=== PATIENT | female | born 1950 | race Asian ===

== ENCOUNTER 2018-07-02 18:36 | Inpatient (IN) | payer OTHER ==
[~2018-07-02] VITALS: Ht 154.9 cm; Wt 50.5 kg
[2018-07-02 19:15] LABS: BASOPHILS # (AUTO) 0.02 x10^3/uL (0-0.1); BASOPHILS % (AUTO) 0 % (0-1); EOSINOPHILS % (AUTO) 1 % (1-7); LYMPHOCYTES # (AUTO) 2.28 x10^3/uL (1-3.4); LYMPHOCYTES % (AUTO) 30 % (22-44); MD NO; MEAN CORPUSCULAR HEMOGLOBIN 28.6 pg (27.0-34.8); MEAN CORPUSCULAR HGB CONC 34.1 g/dL (32.4-35.8); MEAN CORPUSCULAR VOLUME 83.8 fL (80-100); MEAN PLATELET VOLUME 6.8 fL (7.4-10.4); MONOCYTES % (AUTO) 7 % (2-9); NEUTROPHILS % (AUTO) 62 % (42-75); PLATELET COUNT 446 x10^3/uL (130-400); RED CELL DISTRIBUTION WIDTH 14.2 % (9.6-15.2)
[2018-07-02 19:27] LABS: ALANINE AMINOTRANSFERASE 34 U/L (12-78); ALBUMIN 4.6 g/dL (3.4-5.0); ANION GAP 9 mmol/L (5-15); CALCIUM 9.7 mg/dL (8.5-10.1); CHLORIDE 102 mmol/L (98-107)
[2018-07-02 19:29] LABS: ALKALINE PHOSPHATASE 101 U/L (45-117); BILIRUBIN,TOTAL 0.5 mg/dL (0.2-1.0); TOTAL PROTEIN 9.1 g/dL (6.4-8.2)
[2018-07-02] MEDS ORDERED: ACETAMINOPHEN 325 MG TABLET ONE (19:43)
[2018-07-02 19:56] LABS: ACETONE, SERUM Negative (Negative)
[2018-07-02] MEDS ORDERED: ACETAMINOPHEN 325 MG TABLET PO ONE (20:00)
[2018-07-02 20:02] LABS: THYROID STIMULATING HORMONE 2.48 mIU/L (0.358-3.740)
[2018-07-02 20:07] LABS: HEMOGLOBIN A1C 8.2 % (4.2-6.3)
[2018-07-02] MEDS ORDERED: SODIUM CHLORIDE FLUSH 10ML SYR IVF ONE (20:30)
[2018-07-02] MEDS ORDERED: hydrALAzine 20 MG/ML, 1ML IV ONE (20:30)
[2018-07-02] MEDS ORDERED: hydrALAzine 20 MG/ML, 1ML ONE (20:34)
[2018-07-02 20:39] LABS: CULTURE INDICATED? NO; MICROSCOPIC NOT IND
[2018-07-02] MEDS ORDERED: METOPROLOL 1 MG/ML, 5ML ONE (21:07)
[2018-07-02] MEDS ORDERED: METOPROLOL 1 MG/ML, 5ML IVPush PRN (21:30)
[2018-07-02 21:57] LABS: TROPONIN I 0.018 ng/mL (0.000-0.045)
[2018-07-02] MEDS ORDERED: SODIUM CHLORIDE FLUSH 10ML SYR IVF PRN (22:30)
[2018-07-02] MEDS ORDERED: SODIUM CHLORIDE 0.9% 1,000 ML IV SCH (23:26)
[2018-07-02] MEDS ORDERED: morphine SULFATE 10 MG/ML, 1ML IVPush PRN (23:30)
[2018-07-02] MEDS ORDERED: ENALAPRILAT 1.25 MG/ML, 2ML IVPush PRN (23:30)
[2018-07-02] MEDS ORDERED: BISACODYL 10 MG SUPP PR PRN (23:30)
[2018-07-02] MEDS ORDERED: NITROGLYCERIN 0.4 MG BOTTLE (25 TABS) SL PRN (23:30)
[2018-07-02] MEDS ORDERED: ONDANSETRON ODT 4 MG PO PRN (23:30)
[2018-07-02] MEDS ORDERED: DOCUSATE 100 MG CAPSULE PO PRN (23:30)
[2018-07-02] MEDS ORDERED: hydrALAzine 20 MG/ML, 1ML IVPush PRN (23:30)
[2018-07-02] MEDS ORDERED: PROMETHAZINE 25 MG/ML, 1ML IM PRN (23:30)
[2018-07-02] MEDS ORDERED: POLYETHYLENE GLYCOL 17 GM PACKET PO PRN (23:30)
[2018-07-02] MEDS ORDERED: ONDANSETRON 2MG/ML, 2ML IVPush PRN (23:30)
[2018-07-02 23:43] VITALS: BP 195/90
[2018-07-02 23:44] VITALS: BP 200/93
[2018-07-03] VITALS (9 sets, daily range): BP systolic 119–186; BP diastolic 66–86
[2018-07-03] MEDS: PANTOPRAZOLE 40 MG IV IVPush SCH ×2 (00:02→15:23)
[2018-07-03] MEDS: LISINOPRIL 10 MG TABLET PO SCH ×2 (00:02→08:25)
[2018-07-03] MEDS: HEPARIN 5,000 UNITS/ML, 1ML SQ SCH ×4 (00:02→23:30)
[2018-07-03] MEDS: INSULIN LISPRO 100 UNITS/ML, PEN SQ-INSULIN SCH ×5 (00:22→21:16)
[2018-07-03] MEDS ORDERED: LORazepam 0.5MG TABLET PO ONE (00:30)
[2018-07-03] MEDS: hydrALAzine 20 MG/ML, 1ML IVPush PRN (01:41)
[2018-07-03] MEDS: ACETAMINOPHEN 325 MG TABLET PO PRN ×2 (01:41→18:05)
[2018-07-03 02:06] LABS: FREE T4 (FREE THYROXINE) 1.03 ng/dL (0.76-1.46); THYROID STIMULATING HORMONE 2.42 mIU/L (0.358-3.740)
[2018-07-03] MEDS ORDERED: MAALOX/HYOSCYAMINE/LIDOCAINE 45 ML BTL PO ONE (02:30)
[2018-07-03] MEDS ORDERED: LABETALOL 5MG/ML, 20ML IVPush PRN (02:30)
[2018-07-03 02:58] LABS: BASOPHILS # (AUTO) 0.04 x10^3/uL (0-0.1); BASOPHILS % (AUTO) 0 % (0-1); EOSINOPHILS # (AUTO) 0.07 x10^3/uL (0-0.4); EOSINOPHILS % (AUTO) 1 % (1-7); LYMPHOCYTES # (AUTO) 3.52 x10^3/uL (1-3.4); LYMPHOCYTES % (AUTO) 30 % (22-44); MD NO; MEAN CORPUSCULAR HEMOGLOBIN 28.1 pg (27.0-34.8); MEAN CORPUSCULAR HGB CONC 33.4 g/dL (32.4-35.8); MEAN PLATELET VOLUME 6.6 fL (7.4-10.4); MONOCYTES # (AUTO) 0.89 x10^3/uL (0.2-0.8); MONOCYTES % (AUTO) 8 % (2-9); NEUTROPHILS # (AUTO) 7.27 x10^3/uL (1.8-6.8); NEUTROPHILS % (AUTO) 62 % (42-75); PLATELET COUNT 479 x10^3/uL (130-400); RED BLOOD COUNT 5.26 x10^6/uL (3.82-5.3); RED CELL DISTRIBUTION WIDTH 14.1 % (9.6-15.2)
[2018-07-03 03:10] LABS: ALBUMIN 4.2 g/dL (3.4-5.0); ANION GAP 11 mmol/L (5-15); CALCIUM 9.9 mg/dL (8.5-10.1); CHLORIDE 104 mmol/L (98-107)
[2018-07-03 03:16] LABS: ALANINE AMINOTRANSFERASE 32 U/L (12-78); ALKALINE PHOSPHATASE 95 U/L (45-117); CHOL/HDL RATIO 6.2; CHOLESTEROL, TOTAL 331 mg/dL (140-239); CREATININE 0.94 mg/dL (0.55-1.02); HDL CHOL % 16 % (28-40); HDL CHOLESTEROL (DIRECT) 53 mg/dL (40-60); TOTAL PROTEIN 8.5 g/dL (6.4-8.2); TRIGLYCERIDES 492 mg/dL (50-200); TROPONIN I 0.092 ng/mL (0.000-0.045)
[2018-07-03 03:17] LABS: BILIRUBIN,TOTAL 0.5 mg/dL (0.2-1.0)
[2018-07-03] MEDS: ASPIRIN 81 MG TABLET EC PO SCH (05:52)
[2018-07-03] MEDS ORDERED: SODIUM CHLORIDE 0.9% 1,000 ML IV ONE ×2 (10:08→10:15)
[2018-07-03] MEDS ORDERED: BUTALB/APAP/CAFFEINE 50MG/325MG/40MG PO ONE ×2 (10:30)
[2018-07-03] MEDS: METOPROLOL SUCCINATE 25 MG TAB.ER.24H PO SCH (10:32)
[2018-07-03] MEDS ORDERED: MIDAZOLAM 1 MG/ML, 5ML ONE (13:04)
[2018-07-03] MEDS ORDERED: FENTANYL PF 100 MCG/2ML ONE (13:04)
[2018-07-03] MEDS ORDERED: BIVALIRUDIN 250 MG ONE (13:05)
[2018-07-03] MEDS ORDERED: LIDOCAINE-MPF 1%, 5ML ONE (13:05)
[2018-07-03] MEDS ORDERED: VERAPAMIL 2.5 MG/ML, 2ML ONE (13:05)
[2018-07-03] MEDS ORDERED: HEPARIN 1,000 UNITS/ML, 10ML ONE (13:05)
[2018-07-03] MEDS ORDERED: NITROGLYCERIN 5 MG/ML, 10ML ONE (13:05)
[2018-07-03] MEDS ORDERED: TICAGRELOR 90 MG TABLET ONE (14:18)
[2018-07-03] MEDS: SODIUM CHLORIDE 0.9% 1,000 ML IV SCH ×2 (14:19→22:11)
[2018-07-03] MEDS ORDERED: BIVALIRUDIN 250 MG in DEXTROSE 5% 100 ML IV SCH (14:19)
[2018-07-03] MEDS ORDERED: ASPIRIN 325 MG TABLET EC ONE (14:22)
[2018-07-03] MEDS ORDERED: LABETALOL 5MG/ML, 20ML ONE (14:22)
[2018-07-03] MEDS ORDERED: NITROGLYCERIN 0.4 MG BOTTLE (25 TABS) SL ONE (14:30)
[2018-07-03] MEDS ORDERED: ONDANSETRON 2MG/ML, 2ML IVPush PRN (16:00)
[2018-07-03] MEDS: ATORVASTATIN 40 MG TABLET PO SCH (21:16)
[2018-07-03] MEDS: TICAGRELOR 90 MG TABLET PO SCH (21:16)
[2018-07-04] VITALS (11 sets, daily range): BP systolic 128–217; BP diastolic 62–89
[2018-07-04] MEDS: PANTOPRAZOLE 40 MG IV IVPush SCH ×2 (03:59→16:04)
[2018-07-04 04:52] LABS: ANION GAP 8 mmol/L (5-15); CALCIUM 8.6 mg/dL (8.5-10.1); CHLORIDE 108 mmol/L (98-107)
[2018-07-04] MEDS: SODIUM CHLORIDE 0.9% 1,000 ML IV SCH (06:19)
[2018-07-04] MEDS: METOPROLOL SUCCINATE 25 MG TAB.ER.24H PO SCH (06:40)
[2018-07-04] MEDS: ASPIRIN 81 MG TABLET EC PO SCH ×2 (06:40→08:51)
[2018-07-04] MEDS: HEPARIN 5,000 UNITS/ML, 1ML SQ SCH ×3 (08:51→23:21)
[2018-07-04] MEDS: LISINOPRIL 10 MG TABLET PO SCH ×2 (08:51→20:14)
[2018-07-04] MEDS: INSULIN LISPRO 100 UNITS/ML, PEN SQ-INSULIN SCH ×4 (08:51→20:41)
[2018-07-04] MEDS: TICAGRELOR 90 MG TABLET PO SCH ×2 (08:51→20:15)
[2018-07-04] MEDS: hydrALAzine 20 MG/ML, 1ML IVPush PRN (10:02)
[2018-07-04] MEDS ORDERED: AMLODIPINE 5 MG TABLET PO ONE (11:00)
[2018-07-04] MEDS: NITROGLYCERIN 0.4 MG BOTTLE (25 TABS) SL PRN ×2 (11:18→11:29)
[2018-07-04] MEDS: METOPROLOL TARTRATE 25 MG TABLET PO SCH (17:24)
[2018-07-04] MEDS: ATORVASTATIN 40 MG TABLET PO SCH (20:13)
[2018-07-04] MEDS: ACETAMINOPHEN 325 MG TABLET PO PRN (20:46)
[2018-07-05] VITALS (16 sets, daily range): BP systolic 122–181; BP diastolic 61–80
[2018-07-05] MEDS: PANTOPRAZOLE 40 MG IV IVPush SCH ×2 (03:56→15:34)
[2018-07-05] MEDS: METOPROLOL TARTRATE 25 MG TABLET PO SCH ×2 (05:41→17:37)
[2018-07-05 07:24] LABS: BASOPHILS # (AUTO) 0.03 x10^3/uL (0-0.1); BASOPHILS % (AUTO) 0 % (0-1); EOSINOPHILS # (AUTO) 0.14 x10^3/uL (0-0.4); EOSINOPHILS % (AUTO) 2 % (1-7); LYMPHOCYTES # (AUTO) 1.05 x10^3/uL (1-3.4); LYMPHOCYTES % (AUTO) 11 % (22-44); MD NO; MEAN CORPUSCULAR HEMOGLOBIN 27.9 pg (27.0-34.8); MEAN CORPUSCULAR HGB CONC 33.6 g/dL (32.4-35.8); MEAN PLATELET VOLUME 6.9 fL (7.4-10.4); MONOCYTES # (AUTO) 0.55 x10^3/uL (0.2-0.8); MONOCYTES % (AUTO) 6 % (2-9); NEUTROPHILS # (AUTO) 7.93 x10^3/uL (1.8-6.8); NEUTROPHILS % (AUTO) 82 % (42-75); PLATELET COUNT 388 x10^3/uL (130-400); RED BLOOD COUNT 4.68 x10^6/uL (3.82-5.3); RED CELL DISTRIBUTION WIDTH 14.5 % (9.6-15.2)
[2018-07-05] MEDS ORDERED: MAALOX/HYOSCYAMINE/LIDOCAINE 45 ML BTL PO ONE ×2 (07:30→17:00)
[2018-07-05] MEDS: AMLODIPINE 5 MG TABLET PO SCH (07:33)
[2018-07-05] MEDS: CALCIUM CARBONATE 500 MG TAB.CHEW PO SCH (07:33)
[2018-07-05] MEDS: LISINOPRIL 10 MG TABLET PO SCH ×2 (07:33→21:08)
[2018-07-05 07:37] LABS: ALANINE AMINOTRANSFERASE 34 U/L (12-78); ALBUMIN 3.6 g/dL (3.4-5.0); ANION GAP 10 mmol/L (5-15); CALCIUM 8.9 mg/dL (8.5-10.1); CHLORIDE 105 mmol/L (98-107); CREATININE 0.81 mg/dL (0.55-1.02)
[2018-07-05 07:39] LABS: ALKALINE PHOSPHATASE 80 U/L (45-117); TOTAL PROTEIN 7.1 g/dL (6.4-8.2)
[2018-07-05] MEDS: ASPIRIN 81 MG TABLET EC PO SCH (09:07)
[2018-07-05] MEDS: HEPARIN 5,000 UNITS/ML, 1ML SQ SCH ×3 (09:07→23:43)
[2018-07-05] MEDS: TICAGRELOR 90 MG TABLET PO SCH ×2 (09:07→21:07)
[2018-07-05] MEDS: INSULIN LISPRO 100 UNITS/ML, PEN SQ-INSULIN SCH ×4 (09:08→21:00)
[2018-07-05] MEDS: ISOSORBIDE MONONITRATE ER 30 MG TABLET PO SCH (12:45)
[2018-07-05] MEDS: ACETAMINOPHEN 325 MG TABLET PO PRN (15:32)
[2018-07-05] MEDS: NITROGLYCERIN 0.4 MG BOTTLE (25 TABS) SL PRN (16:47)
[2018-07-05 18:34] LABS: MICROSCOPIC NOT IND
[2018-07-05] MEDS ORDERED: OMNIPAQUE 350 MG/ML, 100ML BOTTLE ONE (18:56)
[2018-07-05] MEDS: ATORVASTATIN 40 MG TABLET PO SCH (21:08)
[2018-07-06] VITALS (11 sets, daily range): BP systolic 130–200; BP diastolic 62–93
[2018-07-06] MEDS: PANTOPRAZOLE 40 MG IV IVPush SCH ×2 (04:14→15:38)
[2018-07-06] MEDS: METOPROLOL TARTRATE 25 MG TABLET PO SCH ×2 (06:08→17:42)
[2018-07-06] MEDS: INSULIN LISPRO 100 UNITS/ML, PEN SQ-INSULIN SCH ×4 (07:00→20:42)
[2018-07-06] MEDS: HEPARIN 5,000 UNITS/ML, 1ML SQ SCH ×3 (08:42→22:42)
[2018-07-06] MEDS: TICAGRELOR 90 MG TABLET PO SCH ×2 (08:43→20:46)
[2018-07-06] MEDS: CALCIUM CARBONATE 500 MG TAB.CHEW PO SCH (08:43)
[2018-07-06] MEDS: LISINOPRIL 10 MG TABLET PO SCH ×2 (08:44→20:47)
[2018-07-06] MEDS: AMLODIPINE 5 MG TABLET PO SCH (08:44)
[2018-07-06] MEDS: ASPIRIN 81 MG TABLET EC PO SCH (08:44)
[2018-07-06] MEDS: ISOSORBIDE MONONITRATE ER 30 MG TABLET PO SCH (08:44)
[2018-07-06 08:48] LABS: ALBUMIN 3.8 g/dL (3.4-5.0); ANION GAP 9 mmol/L (5-15); CHLORIDE 105 mmol/L (98-107); CREATININE 0.89 mg/dL (0.55-1.02)
[2018-07-06 08:48] LABS: BASOPHILS # (AUTO) 0.01 x10^3/uL (0-0.1); BASOPHILS % (AUTO) 0 % (0-1); EOSINOPHILS # (AUTO) 0.15 x10^3/uL (0-0.4); EOSINOPHILS % (AUTO) 2 % (1-7); LYMPHOCYTES # (AUTO) 1.36 x10^3/uL (1-3.4); LYMPHOCYTES % (AUTO) 19 % (22-44); MD SCAN; MEAN CORPUSCULAR HGB CONC 33.7 g/dL (32.4-35.8); MEAN CORPUSCULAR VOLUME 83.2 fL (80-100); MEAN PLATELET VOLUME 7.1 fL (7.4-10.4); MONOCYTES # (AUTO) 0.77 x10^3/uL (0.2-0.8); MONOCYTES % (AUTO) 11 % (2-9); NEUTROPHILS # (AUTO) 4.78 x10^3/uL (1.8-6.8); NEUTROPHILS % (AUTO) 68 % (42-75); PLATELET COUNT 392 x10^3/uL (130-400); RED BLOOD COUNT 4.64 x10^6/uL (3.82-5.3); RED CELL DISTRIBUTION WIDTH 14.8 % (9.6-15.2)
[2018-07-06] MEDS ORDERED: METO25TA35 PO (11:32)
[2018-07-06] MEDS ORDERED: PANT40TA5 PO (11:32)
[2018-07-06] MEDS ORDERED: LISI-167 PO (11:32)
[2018-07-06] MEDS ORDERED: ASPI-621 PO (11:32)
[2018-07-06] MEDS ORDERED: ISOS30TA8 PO (11:32)
[2018-07-06] MEDS ORDERED: TICA90TA PO (11:32)
[2018-07-06] MEDS ORDERED: ATOR40TA78 PO (11:32)
[2018-07-06] MEDS ORDERED: AMLO5TAB7 PO (11:32)
[2018-07-06] MEDS: NITROGLYCERIN 0.4 MG BOTTLE (25 TABS) SL PRN ×3 (13:38→14:00)
[2018-07-06 15:11] LABS: CLOSTRIDIUM DIFFICILE ANTIGEN NEGATIVE; CLOSTRIDIUM DIFFICILE TOXIN NEGATIVE (Negative)
[2018-07-06] MEDS ORDERED: MAALOX/HYOSCYAMINE/LIDOCAINE 45 ML BTL PO ONE (15:30)
[2018-07-06] MEDS: ATORVASTATIN 40 MG TABLET PO SCH (20:46)
[2018-07-06] MEDS ORDERED: LABETALOL 5MG/ML, 20ML IVPush ONE (23:00)
[2018-07-07] VITALS (8 sets, daily range): BP systolic 104–219; BP diastolic 67–97
[2018-07-07] MEDS ORDERED: LORazepam 1MG TABLET PO ONE
[2018-07-07] MEDS ORDERED: OXYMETAZOLINE NASAL SPRAY 0.05%, 15ML NAS PRN (00:30)
[2018-07-07] MEDS: LABETALOL 5MG/ML, 20ML IVPush PRN ×2 (01:34→02:53)
[2018-07-07 05:23] LABS: BASOPHILS # (AUTO) 0.02 x10^3/uL (0-0.1); BASOPHILS % (AUTO) 0 % (0-1); EOSINOPHILS # (AUTO) 0.11 x10^3/uL (0-0.4); EOSINOPHILS % (AUTO) 2 % (1-7); LYMPHOCYTES # (AUTO) 1.49 x10^3/uL (1-3.4); LYMPHOCYTES % (AUTO) 21 % (22-44); MD NO; MEAN CORPUSCULAR HEMOGLOBIN 28.5 pg (27.0-34.8); MEAN CORPUSCULAR HGB CONC 33.7 g/dL (32.4-35.8); MEAN CORPUSCULAR VOLUME 84.6 fL (80-100); MEAN PLATELET VOLUME 7.3 fL (7.4-10.4); MONOCYTES % (AUTO) 11 % (2-9); NEUTROPHILS # (AUTO) 4.69 x10^3/uL (1.8-6.8); NEUTROPHILS % (AUTO) 66 % (42-75); PLATELET COUNT 384 x10^3/uL (130-400); RED BLOOD COUNT 4.55 x10^6/uL (3.82-5.3); RED CELL DISTRIBUTION WIDTH 14.5 % (9.6-15.2)
[2018-07-07 05:32] LABS: ANION GAP 10 mmol/L (5-15); CALCIUM 8.7 mg/dL (8.5-10.1); CHLORIDE 107 mmol/L (98-107)
[2018-07-07 05:33] LABS: CREATININE 0.81 mg/dL (0.55-1.02)
[2018-07-07] MEDS: METOPROLOL TARTRATE 25 MG TABLET PO SCH ×2 (05:44→17:43)
[2018-07-07] MEDS ORDERED: PANTOPRAZOLE 40 MG IV IVPush SCH (07:00)
[2018-07-07] MEDS: INSULIN LISPRO 100 UNITS/ML, PEN SQ-INSULIN SCH ×4 (08:04→20:54)
[2018-07-07] MEDS: HEPARIN 5,000 UNITS/ML, 1ML SQ SCH ×3 (08:27→22:36)
[2018-07-07] MEDS: TICAGRELOR 90 MG TABLET PO SCH ×2 (08:27→20:52)
[2018-07-07] MEDS: AMLODIPINE 5 MG TABLET PO SCH ×2 (08:28→20:54)
[2018-07-07] MEDS: LISINOPRIL 10 MG TABLET PO SCH ×2 (08:28→20:53)
[2018-07-07] MEDS: ASPIRIN 81 MG TABLET EC PO SCH (08:28)
[2018-07-07] MEDS: ISOSORBIDE MONONITRATE ER 30 MG TABLET PO SCH (08:28)
[2018-07-07] MEDS: CALCIUM CARBONATE 500 MG TAB.CHEW PO SCH (08:28)
[2018-07-07] MEDS: metFORMIN 850 MG TABLET PO SCH ×2 (12:37→17:43)
[2018-07-07] MEDS: PANTOPROZOLE 40MG TABLET PO SCH (17:43)
[2018-07-07] MEDS: ATORVASTATIN 40 MG TABLET PO SCH (20:53)
[2018-07-08] VITALS (10 sets, daily range): BP systolic 124–205; BP diastolic 57–98
[2018-07-08] MEDS: LABETALOL 5MG/ML, 20ML IVPush PRN ×2 (05:29→17:40)
[2018-07-08 05:32] LABS: BASOPHILS # (AUTO) 0.02 x10^3/uL (0-0.1); BASOPHILS % (AUTO) 0 % (0-1); EOSINOPHILS # (AUTO) 0.24 x10^3/uL (0-0.4); EOSINOPHILS % (AUTO) 3 % (1-7); LYMPHOCYTES # (AUTO) 1.94 x10^3/uL (1-3.4); LYMPHOCYTES % (AUTO) 24 % (22-44); MD NO; MEAN CORPUSCULAR HEMOGLOBIN 28.1 pg (27.0-34.8); MEAN CORPUSCULAR HGB CONC 33.4 g/dL (32.4-35.8); MEAN CORPUSCULAR VOLUME 84.2 fL (80-100); MEAN PLATELET VOLUME 7.4 fL (7.4-10.4); MONOCYTES % (AUTO) 9 % (2-9); NEUTROPHILS % (AUTO) 64 % (42-75); PLATELET COUNT 446 x10^3/uL (130-400); RED BLOOD COUNT 4.86 x10^6/uL (3.82-5.3); RED CELL DISTRIBUTION WIDTH 14.7 % (9.6-15.2)
[2018-07-08 05:36] LABS: ALANINE AMINOTRANSFERASE 74 U/L (12-78); ALBUMIN 3.9 g/dL (3.4-5.0); ANION GAP 11 mmol/L (5-15); CALCIUM 9.4 mg/dL (8.5-10.1); CHLORIDE 106 mmol/L (98-107); CREATININE 0.84 mg/dL (0.55-1.02)
[2018-07-08 05:38] LABS: ALKALINE PHOSPHATASE 96 U/L (45-117); BILIRUBIN,TOTAL 0.5 mg/dL (0.2-1.0); TOTAL PROTEIN 8.2 g/dL (6.4-8.2)
[2018-07-08] MEDS: CALCIUM CARBONATE 500 MG TAB.CHEW PO SCH (06:16)
[2018-07-08] MEDS: METOPROLOL TARTRATE 25 MG TABLET PO SCH ×2 (06:17→17:36)
[2018-07-08] MEDS: HEPARIN 5,000 UNITS/ML, 1ML SQ SCH ×3 (07:30→23:30)
[2018-07-08] MEDS: AMLODIPINE 5 MG TABLET PO SCH ×2 (08:08→20:22)
[2018-07-08] MEDS: TICAGRELOR 90 MG TABLET PO SCH ×2 (08:08→20:21)
[2018-07-08] MEDS: ASPIRIN 81 MG TABLET EC PO SCH (08:08)
[2018-07-08] MEDS: metFORMIN 850 MG TABLET PO SCH ×2 (08:08→16:19)
[2018-07-08] MEDS: LISINOPRIL 10 MG TABLET PO SCH (08:08)
[2018-07-08] MEDS: ISOSORBIDE MONONITRATE ER 30 MG TABLET PO SCH (08:08)
[2018-07-08] MEDS: PANTOPROZOLE 40MG TABLET PO SCH ×2 (08:08→17:36)
[2018-07-08] MEDS: INSULIN LISPRO 100 UNITS/ML, PEN SQ-INSULIN SCH ×4 (08:23→20:30)
[2018-07-08] MEDS: ACETAMINOPHEN 325 MG TABLET PO PRN (12:25)
[2018-07-08] MEDS: ENALAPRILAT 1.25 MG/ML, 2ML IV PRN ×2 (12:33→16:33)
[2018-07-08] MEDS ORDERED: METOCLOPRAMIDE 5 MG/ML, 2ML IVPush ONE (13:30)
[2018-07-08] MEDS ORDERED: KETOROLAC 30 MG/1 ML IVPush ONE (13:30)
[2018-07-08] MEDS ORDERED: DIPHENHYDRAMINE 50 MG/ML, 1ML IVPush ONE (13:30)
[2018-07-08] MEDS: SUCRALFATE 1 GM TABLET PO SCH ×2 (16:19→20:21)
[2018-07-08] MEDS: SODIUM BICARBONATE 8.4% 100 MEQ in DEXTROSE 5% 1,000 ML IV SCH (17:36)
[2018-07-08] MEDS: ATORVASTATIN 40 MG TABLET PO SCH (20:22)
[2018-07-08] MEDS: MAALOX/HYOSCYAMINE/LIDOCAINE 45 ML BTL PO SCH (20:22)
[2018-07-08] MEDS: LISINOPRIL 20 MG TABLET PO SCH (20:24)
[2018-07-08] MEDS ORDERED: SUCRALFATE 1 GM TABLET PO SCH (21:00)
[2018-07-09] MEDS: SODIUM BICARBONATE 8.4% 100 MEQ in DEXTROSE 5% 1,000 ML IV SCH ×2 (02:06→10:36)
[2018-07-09 02:08] VITALS: BP 184/87
[2018-07-09] MEDS: LABETALOL 5MG/ML, 20ML IVPush PRN (02:15)
[2018-07-09 04:02] VITALS: BP 144/96
[2018-07-09] MEDS: METOPROLOL TARTRATE 25 MG TABLET PO SCH (05:39)
[2018-07-09] MEDS: SUCRALFATE 1 GM TABLET PO SCH ×2 (05:39→11:15)
[2018-07-09 05:44] VITALS: BP 168/80
[2018-07-09] MEDS: ENALAPRILAT 1.25 MG/ML, 2ML IV PRN (05:45)
[2018-07-09 06:41] VITALS: BP 161/77
[2018-07-09] MEDS: HEPARIN 5,000 UNITS/ML, 1ML SQ SCH (07:30)
[2018-07-09 07:58] VITALS: BP 172/93
[2018-07-09] MEDS ORDERED: CARVEDILOL 25 MG TABLET PO SCH (08:30)
[2018-07-09] MEDS: TICAGRELOR 90 MG TABLET PO SCH (08:42)
[2018-07-09] MEDS: ISOSORBIDE MONONITRATE ER 30 MG TABLET PO SCH (08:42)
[2018-07-09] MEDS: LISINOPRIL 20 MG TABLET PO SCH (08:42)
[2018-07-09] MEDS: ASPIRIN 81 MG TABLET EC PO SCH (08:42)
[2018-07-09] MEDS: MAALOX/HYOSCYAMINE/LIDOCAINE 45 ML BTL PO SCH (08:43)
[2018-07-09] MEDS: PANTOPROZOLE 40MG TABLET PO SCH (08:43)
[2018-07-09] MEDS: CALCIUM CARBONATE 500 MG TAB.CHEW PO SCH (08:43)
[2018-07-09] MEDS: INSULIN LISPRO 100 UNITS/ML, PEN SQ-INSULIN SCH ×2 (08:53→11:15)
[2018-07-09] MEDS ORDERED: CLON0.1T PO (12:41)
[2018-07-09] MEDS ORDERED: CARV12.543 PO (12:42)
[2018-07-09] MEDS ORDERED: CLAR500T PO (12:45)
[2018-07-09] MEDS ORDERED: AMOX500T PO (12:47)
[2018-07-09] MEDS ORDERED: ASPI-515 PO (12:48)
[2018-07-09] MEDS ORDERED: AMLO5TAB7 PO (12:50)
[2018-07-09] MEDS ORDERED: LISI-170 PO (12:52)
[2018-07-09] MEDS ORDERED: TICA90TA PO (12:53)
[2018-07-09] MEDS ORDERED: METF850T10 PO (12:55)
[2018-07-09] MEDS ORDERED: INSU100C SQ-INSULIN (13:00)
== END 2018-07-09 14:00 | disposition home or self-care (01) | DRG 247 ==
LOC: ED 21:23 → EDIP 22:24 → 5SO 22:59 → DCLOUNGE 07-09 13:21
PROVIDERS: ADMIT Internal Medicine; ATTEND Hospitalist
PROC: 027135Z Dilation of Coronary Artery, Two Arteries with Two Drug-eluting Intraluminal Devices, Percutaneous Approach (ICD-10-PCS; principal; 2018-07-03)
PROC: 4A023N7 Measurement of Cardiac Sampling and Pressure, Left Heart, Percutaneous Approach (ICD-10-PCS; 2018-07-03)
PROC: B2111ZZ Fluoroscopy of Multiple Coronary Arteries using Low Osmolar Contrast (ICD-10-PCS; 2018-07-03)
PROC: B2151ZZ Fluoroscopy of Left Heart using Low Osmolar Contrast (ICD-10-PCS; 2018-07-03)
DX: I21.4 Non-ST elevation (NSTEMI) myocardial infarction (principal); E11.65 Type 2 diabetes mellitus with hyperglycemia; E78.1 Pure hyperglyceridemia; E89.0 Postprocedural hypothyroidism; F41.9 Anxiety disorder, unspecified; I10 Essential (primary) hypertension; I16.0 Hypertensive urgency; I25.10 Atherosclerotic heart disease of native coronary artery without angina pectoris; K21.9 Gastro-esophageal reflux disease without esophagitis; R51 Headache; K76.0 Fatty (change of) liver, not elsewhere classified; K80.20 Calculus of gallbladder without cholecystitis without obstruction; Z79.899 Other long term (current) drug therapy; Z82.49 Family history of ischemic heart disease and other diseases of the circulatory system; Z83.3 Family history of diabetes mellitus; Z86.73 Personal history of transient ischemic attack (TIA), and cerebral infarction without residual deficits; Z87.891 Personal history of nicotine dependence
CPT/HCPCS: 36415; 87338; 93458; 99291; C9600; 70450; 71046; 74177; 76700; 80048; 80053; 80061; 81003; 82010; 82040; 82962; 83036; 83690; 83735; 84439; 84443; 84484; 85018; 85025; 85379; 87040; 87324; 93005; 93306; 93975; 96361; 96374; 96375; 99156; 99157; C1769; C1894; G0378; J0583; J1644; J1885; J2250; J2405; J3010; J7070; Q9967; C1725; C1874; C1887; C9113; J0360; J1200; J2765; J7030

== ENCOUNTER 2018-07-18 16:29 | Inpatient (IN) | payer OTHER ==
[~2018-07-18] VITALS: Ht 154.9 cm; Wt 44.8 kg
[~2018-07-18 16:29] MED LIST: AMLO5TAB7 PO; AMOX500T PO; ASPI-515 PO; ASPI-621 PO; ATOR40TA78 PO; CARV12.543 PO; CLAR500T PO; CLON0.1T PO; INSU100C SQ-INSULIN; ISOS30TA8 PO; LISI-167 PO; LISI-170 PO; METF850T10 PO; METO25TA35 PO; PANT40TA5 PO; TICA90TA PO
[2018-07-18] MEDS ORDERED: FAMOTIDINE 20 MG/2 ML IVP ONE (17:00)
[2018-07-18] MEDS ORDERED: SODIUM CHLORIDE FLUSH 10ML SYR IVF ONE (17:00)
[2018-07-18 17:08] LABS: BASOPHILS # (AUTO) 0.03 x10^3/uL (0-0.1); BASOPHILS % (AUTO) 0 % (0-1); EOSINOPHILS # (AUTO) 0.44 x10^3/uL (0-0.4); EOSINOPHILS % (AUTO) 5 % (1-7); LYMPHOCYTES # (AUTO) 1.04 x10^3/uL (1-3.4); LYMPHOCYTES % (AUTO) 11 % (22-44); MD NO; MEAN CORPUSCULAR HEMOGLOBIN 28.1 pg (27.0-34.8); MEAN CORPUSCULAR HGB CONC 33.7 g/dL (32.4-35.8); MEAN CORPUSCULAR VOLUME 83.5 fL (80-100); MEAN PLATELET VOLUME 6.7 fL (7.4-10.4); MONOCYTES # (AUTO) 1.28 x10^3/uL (0.2-0.8); MONOCYTES % (AUTO) 13 % (2-9); NEUTROPHILS # (AUTO) 7.06 x10^3/uL (1.8-6.8); NEUTROPHILS % (AUTO) 72 % (42-75); PLATELET COUNT 684 x10^3/uL (130-400); RED BLOOD COUNT 4.68 x10^6/uL (3.82-5.3); RED CELL DISTRIBUTION WIDTH 14.1 % (9.6-15.2)
[2018-07-18 17:19] LABS: ALBUMIN 4.1 g/dL (3.4-5.0); ANION GAP 14 mmol/L (5-15); CALCIUM 9.1 mg/dL (8.5-10.1); CHLORIDE 100 mmol/L (98-107)
[2018-07-18 17:26] LABS: ALANINE AMINOTRANSFERASE 30 U/L (12-78); ALKALINE PHOSPHATASE 93 U/L (45-117); BILIRUBIN,TOTAL 0.8 mg/dL (0.2-1.0); CREATININE 3.01 mg/dL (0.55-1.02)
[2018-07-18] MEDS ORDERED: ONDANSETRON 2MG/ML, 2ML ONE (17:44)
[2018-07-18] MEDS ORDERED: FAMOTIDINE 20 MG/2 ML ONE (17:44)
[2018-07-18 17:53] LABS: TROPONIN I 0.019 ng/mL (0.000-0.045)
[2018-07-18] MEDS ORDERED: ONDANSETRON 2MG/ML, 2ML IVPush ONE (18:00)
[2018-07-18] MEDS ORDERED: BISACODYL 10 MG SUPP PR PRN (21:30)
[2018-07-18] MEDS ORDERED: hydrALAzine 20 MG/ML, 1ML IVPush PRN (21:30)
[2018-07-18] MEDS ORDERED: ONDANSETRON 2MG/ML, 2ML IVPush PRN (21:30)
[2018-07-18] MEDS: SODIUM CHLORIDE 0.9% 1,000 ML IV SCH (22:00)
[2018-07-18 22:24] VITALS: BP 125/67
[2018-07-18] MEDS: INSULIN LISPRO 100 UNITS/ML, PEN SQ-INSULIN SCH (22:30)
[2018-07-18 23:17] VITALS: BP 136/70
[2018-07-18] MEDS: ASPIRIN 81 MG TABLET EC PO SCH (23:19)
[2018-07-18] MEDS: ATORVASTATIN 40 MG TABLET PO SCH (23:19)
[2018-07-18] MEDS: CARVEDILOL 12.5 MG TABLET PO SCH (23:19)
[2018-07-18] MEDS: AMOXICILLIN 500 MG CAPSULE PO SCH (23:20)
[2018-07-18] MEDS: CLARITHROMYCIN 500 MG TABLET PO SCH (23:20)
[2018-07-18] MEDS: LISINOPRIL 20 MG TABLET PO SCH (23:20)
[2018-07-18 23:21] LABS: TROPONIN I 0.016 ng/mL (0.000-0.045)
[2018-07-18] MEDS: AMLODIPINE 5 MG TABLET PO SCH (23:36)
[2018-07-19 02:06] VITALS: BP 128/68
[2018-07-19 04:49] LABS: BASOPHILS # (AUTO) 0.05 x10^3/uL (0-0.1); BASOPHILS % (AUTO) 1 % (0-1); EOSINOPHILS % (AUTO) 5 % (1-7); LYMPHOCYTES # (AUTO) 1.07 x10^3/uL (1-3.4); LYMPHOCYTES % (AUTO) 12 % (22-44); MD NO; MEAN CORPUSCULAR HEMOGLOBIN 27.8 pg (27.0-34.8); MEAN CORPUSCULAR HGB CONC 33.4 g/dL (32.4-35.8); MEAN CORPUSCULAR VOLUME 83.3 fL (80-100); MEAN PLATELET VOLUME 6.7 fL (7.4-10.4); MONOCYTES # (AUTO) 1.24 x10^3/uL (0.2-0.8); MONOCYTES % (AUTO) 14 % (2-9); NEUTROPHILS # (AUTO) 6.06 x10^3/uL (1.8-6.8); NEUTROPHILS % (AUTO) 69 % (42-75); PLATELET COUNT 573 x10^3/uL (130-400); RED BLOOD COUNT 4.11 x10^6/uL (3.82-5.3); RED CELL DISTRIBUTION WIDTH 14.2 % (9.6-15.2)
[2018-07-19 04:58] LABS: ANION GAP 9 mmol/L (5-15); CHLORIDE 106 mmol/L (98-107); CREATININE 2.48 mg/dL (0.55-1.02)
[2018-07-19 05:00] LABS: TROPONIN I 0.019 ng/mL (0.000-0.045)
[2018-07-19] MEDS: SODIUM CHLORIDE 0.9% 1,000 ML IV SCH ×2 (05:41→15:12)
[2018-07-19] MEDS: INSULIN LISPRO 100 UNITS/ML, PEN SQ-INSULIN SCH ×4 (07:00→21:42)
[2018-07-19 07:59] VITALS: BP 122/62
[2018-07-19] MEDS: AMOXICILLIN 500 MG CAPSULE PO SCH ×2 (09:00→21:40)
[2018-07-19] MEDS ORDERED: AMOXICILLIN 250 MG CAPSULE ONE (09:06)
[2018-07-19] MEDS: AMLODIPINE 5 MG TABLET PO SCH ×2 (09:12→21:41)
[2018-07-19] MEDS: ISOSORBIDE MONONITRATE ER 30 MG TABLET PO SCH (09:14)
[2018-07-19] MEDS: ASPIRIN 81 MG TABLET EC PO SCH ×2 (09:14→21:40)
[2018-07-19] MEDS: PANTOPROZOLE 40MG TABLET PO SCH (09:14)
[2018-07-19] MEDS: LISINOPRIL 20 MG TABLET PO SCH ×2 (09:14→21:41)
[2018-07-19] MEDS: CLARITHROMYCIN 500 MG TABLET PO SCH ×2 (09:15→21:40)
[2018-07-19] MEDS: TICAGRELOR 90 MG TABLET PO SCH (09:15)
[2018-07-19] MEDS: CARVEDILOL 12.5 MG TABLET PO SCH ×2 (09:15→21:41)
[2018-07-19] MEDS ORDERED: MAALOX/HYOSCYAMINE/LIDOCAINE 45 ML BTL PO ONE (09:30)
[2018-07-19 12:01] LABS: CLOSTRIDIUM DIFFICILE ANTIGEN NEGATIVE; CLOSTRIDIUM DIFFICILE TOXIN NEGATIVE (Negative)
[2018-07-19] MEDS: SUCRALFATE 1 GM/10 ML UDC PO SCH ×3 (12:18→21:41)
[2018-07-19 13:58] VITALS: BP 102/55
[2018-07-19] MEDS ORDERED: LOPERAMIDE 2 MG CAPSULE PO PRN (17:00)
[2018-07-19 20:46] VITALS: BP 125/66
[2018-07-19] MEDS: ATORVASTATIN 40 MG TABLET PO SCH (21:41)
[2018-07-20] MEDS: SODIUM CHLORIDE 0.9% 1,000 ML IV SCH ×2 (00:07→11:26)
[2018-07-20 01:59] VITALS: BP 105/61
[2018-07-20 05:41] LABS: BASOPHILS # (AUTO) 0.03 x10^3/uL (0-0.1); BASOPHILS % (AUTO) 0 % (0-1); EOSINOPHILS # (AUTO) 0.16 x10^3/uL (0-0.4); EOSINOPHILS % (AUTO) 2 % (1-7); LYMPHOCYTES # (AUTO) 0.93 x10^3/uL (1-3.4); LYMPHOCYTES % (AUTO) 14 % (22-44); MD NO; MEAN CORPUSCULAR HEMOGLOBIN 28.6 pg (27.0-34.8); MEAN CORPUSCULAR HGB CONC 34.1 g/dL (32.4-35.8); MEAN PLATELET VOLUME 6.8 fL (7.4-10.4); MONOCYTES # (AUTO) 1.23 x10^3/uL (0.2-0.8); MONOCYTES % (AUTO) 18 % (2-9); NEUTROPHILS # (AUTO) 4.45 x10^3/uL (1.8-6.8); NEUTROPHILS % (AUTO) 65 % (42-75); PLATELET COUNT 508 x10^3/uL (130-400); RED BLOOD COUNT 3.81 x10^6/uL (3.82-5.3); RED CELL DISTRIBUTION WIDTH 14.4 % (9.6-15.2)
[2018-07-20 05:46] LABS: ALBUMIN 3.2 g/dL (3.4-5.0); ANION GAP 10 mmol/L (5-15); CALCIUM 8.3 mg/dL (8.5-10.1); CHLORIDE 111 mmol/L (98-107)
[2018-07-20 05:50] LABS: ALANINE AMINOTRANSFERASE 23 U/L (12-78); ALKALINE PHOSPHATASE 76 U/L (45-117); BILIRUBIN,TOTAL 0.5 mg/dL (0.2-1.0); CREATININE 1.57 mg/dL (0.55-1.02); TOTAL PROTEIN 6.4 g/dL (6.4-8.2)
[2018-07-20] MEDS: INSULIN LISPRO 100 UNITS/ML, PEN SQ-INSULIN SCH ×2 (07:00→11:26)
[2018-07-20 07:15] VITALS: BP 125/71
[2018-07-20] MEDS ORDERED: AMOXICILLIN 250 MG CAPSULE ONE (08:05)
[2018-07-20] MEDS: CARVEDILOL 12.5 MG TABLET PO SCH (08:38)
[2018-07-20] MEDS: SUCRALFATE 1 GM/10 ML UDC PO SCH ×2 (08:38→11:26)
[2018-07-20] MEDS: LISINOPRIL 20 MG TABLET PO SCH (08:38)
[2018-07-20] MEDS: PANTOPROZOLE 40MG TABLET PO SCH (08:38)
[2018-07-20] MEDS: ASPIRIN 81 MG TABLET EC PO SCH (08:39)
[2018-07-20] MEDS: AMOXICILLIN 500 MG CAPSULE PO SCH (08:39)
[2018-07-20] MEDS: ISOSORBIDE MONONITRATE ER 30 MG TABLET PO SCH (08:39)
[2018-07-20] MEDS: AMLODIPINE 5 MG TABLET PO SCH (08:39)
[2018-07-20] MEDS: CLARITHROMYCIN 500 MG TABLET PO SCH (08:39)
[2018-07-20] MEDS: TICAGRELOR 90 MG TABLET PO SCH (08:39)
[2018-07-20 12:58] VITALS: BP 126/69
[2018-07-20] MEDS ORDERED: SUCR1ORA5 PO (14:04)
== END 2018-07-20 16:40 | disposition home or self-care (01) | DRG 438 ==
LOC: ED 18:13 → EDIP 18:23 → 5SO 19:54
PROVIDERS: ADMIT Internal Medicine; ATTEND Internal Medicine
DX: K85.90 Acute pancreatitis without necrosis or infection, unspecified (principal); N17.0 Acute kidney failure with tubular necrosis; I21.4 Non-ST elevation (NSTEMI) myocardial infarction; E43 Unspecified severe protein-calorie malnutrition; E87.1 Hypo-osmolality and hyponatremia; E87.2 Acidosis; Z68.1 Body mass index [BMI] 19.9 or less, adult; I25.10 Atherosclerotic heart disease of native coronary artery without angina pectoris; I10 Essential (primary) hypertension; E11.9 Type 2 diabetes mellitus without complications; D64.9 Anemia, unspecified; Z95.5 Presence of coronary angioplasty implant and graft; K21.9 Gastro-esophageal reflux disease without esophagitis; K80.20 Calculus of gallbladder without cholecystitis without obstruction; Z87.11 Personal history of peptic ulcer disease; Z79.2 Long term (current) use of antibiotics; Z79.899 Other long term (current) drug therapy; Z79.82 Long term (current) use of aspirin; T38.3X5A Adverse effect of insulin and oral hypoglycemic [antidiabetic] drugs, initial encounter; Y92.89 Other specified places as the place of occurrence of the external cause
CPT/HCPCS: 36415; J3490; 71045; 76700; 80048; 80053; 82962; 83690; 83880; 84478; 84484; 85025; 87324; 93005; 96374; 96375; G0378; J2405; J1815; J7030

== ENCOUNTER → 2018-12-16 | Outpatient (CLI) | payer OTHER ==
[~2018-12-16] MED LIST changes: +AMLO-150 PO; -AMLO5TAB7 PO; -ASPI-621 PO; +ASPI81TA45 PO; -CLON0.1T PO; +CLON0.1T22 PO; +SUCR1ORA5 PO
== END | disposition home or self-care (01) ==
LOC: CFH 08:14
DX: I10 Essential (primary) hypertension (principal); R06.02 Shortness of breath
CPT/HCPCS: 78452; 93017; A9502

== ENCOUNTER → 2019-07-29 | Outpatient (CLI) | payer OTHER, MEDICARE ==
[~2019-07-29] MED LIST changes: +CLAR-36 PO; -CLAR500T PO; +REGADENOSON 0.4 MG/5 ML SYRINGE ONE
== END | disposition home or self-care (01) ==
LOC: CFH 07:54
PROVIDERS: ATTEND Registered Nurse
DX: I22.8 Subsequent ST elevation (STEMI) myocardial infarction of other sites (principal)
CPT/HCPCS: 78452; 93017; A9502; J2785

== ENCOUNTER → 2019-10-24 | Outpatient (CLI) | payer MEDICARE ==
[~2019-10-24] MED LIST changes: +CLAR-14 PO; -CLAR-36 PO; -REGADENOSON 0.4 MG/5 ML SYRINGE ONE
== END | disposition home or self-care (01) ==
LOC: CFH 10-06 12:27
PROVIDERS: ATTEND Internal Medicine Cardiovascular Disease
DX: I22.8 Subsequent ST elevation (STEMI) myocardial infarction of other sites (principal); Z95.820 Peripheral vascular angioplasty status with implants and grafts
CPT/HCPCS: 78452; 93017; A9502

== ENCOUNTER → 2020-04-01 | Outpatient (CLI) | payer MEDICARE ==
[~2020-04-01] MED LIST changes: +ASPI-496 PO; +CARV12.52 PO; +CLOP75TA52 PO; +LISI2.5T PO
== END | disposition home or self-care (01) ==
LOC: CFH 06:47
PROVIDERS: ATTEND Family Medicine
DX: M81.0 Age-related osteoporosis without current pathological fracture (principal); N95.9 Unspecified menopausal and perimenopausal disorder
CPT/HCPCS: 77080

== ENCOUNTER → 2020-04-23 | Outpatient (CLI) | payer MEDICARE | END | disposition home or self-care (01) | LOC: CFH 12:19 | PROVIDERS: ATTEND Family Medicine | DX: R92.2 Inconclusive mammogram (principal) | CPT/HCPCS: 76641 ==

== ENCOUNTER → 2020-05-28 | Outpatient (CLI) | payer MEDICARE ==
[~2020-05-28] MED LIST changes: -PANT40TA5 PO; +PANT40TA6 PO
== END | disposition home or self-care (01) ==
LOC: CFH 08:02
PROVIDERS: ATTEND Family Medicine
DX: N63.12 Unspecified lump in the right breast, upper inner quadrant (principal)
CPT/HCPCS: 76642; 77065

== ENCOUNTER 2020-06-14 18:30 | Emergency (ER) | payer MEDICARE ==
[~2020-06-14] VITALS: Ht 154.9 cm; Wt 42.3 kg
[2020-06-14] MEDS ORDERED: MAALOX/HYOSCYAMINE/LIDOCAINE 45 ML BTL ONE (19:20)
[2020-06-14] MEDS ORDERED: MAALOX/HYOSCYAMINE/LIDOCAINE 45 ML BTL PO ONE (19:30)
[2020-06-14 19:44] LABS: BASOPHILS % (AUTO) 1 % (0-1); EOSINOPHILS % (AUTO) 5 % (1-7); LYMPHOCYTES % (AUTO) 28 % (22-44); MEAN CORPUSCULAR HEMOGLOBIN 28.4 pg (27.0-34.8); MEAN CORPUSCULAR HGB CONC 33.3 g/dL (32.4-35.8); MEAN PLATELET VOLUME 6.6 fL (7.4-10.4); MONOCYTES % (AUTO) 9 % (2-9); NEUTROPHILS % (AUTO) 57 % (42-75); PLATELET COUNT 334 x10^3/uL (130-400); RED BLOOD COUNT 4.39 x10^6/uL (3.82-5.3)
[2020-06-14 19:47] LABS: MD NO
[2020-06-14 19:55] LABS: ALANINE AMINOTRANSFERASE 30 U/L (12-78); ALBUMIN 4.5 g/dL (3.4-5.0); ANION GAP 5 mmol/L (5-15); CALCIUM 10.1 mg/dL (8.5-10.1); CHLORIDE 107 mmol/L (98-107)
[2020-06-14 20:00] LABS: ALKALINE PHOSPHATASE 55 U/L (45-117); BILIRUBIN,TOTAL 0.6 mg/dL (0.2-1.0); CREATININE 0.96 mg/dL (0.55-1.02); TOTAL PROTEIN 8.5 g/dL (6.4-8.2); TROPONIN I < 0.015 ng/mL (0.000-0.045)
[2020-06-14 23:14] LABS: TROPONIN I < 0.015 ng/mL (0.000-0.045)
[2020-06-14] MEDS ORDERED: ACETAMINOPHEN 325 MG TABLET PO ONE (23:30)
[2020-06-14] MEDS ORDERED: ACETAMINOPHEN 325 MG TABLET ONE (23:32)
[2020-06-14 23:42] VITALS: BP 146/71
== END 2020-06-14 23:50 | disposition home or self-care (01) ==
LOC: ED 19:00
DX: R07.89 Other chest pain (principal); R94.31 Abnormal electrocardiogram [ECG] [EKG]; I10 Essential (primary) hypertension; E11.65 Type 2 diabetes mellitus with hyperglycemia; I25.2 Old myocardial infarction; Z98.61 Coronary angioplasty status
CPT/HCPCS: 36415; 71045; 80053; 83690; 83880; 84484; 85025; 93005; 99285

== ENCOUNTER → 2020-11-16 | Outpatient (CLI) | payer MEDICARE ==
[~2020-11-16] MED LIST changes: -ASPI-515 PO; +ASPI-963 PO
== END | disposition home or self-care (01) ==
LOC: CFH 13:35
PROVIDERS: ATTEND Family Medicine
DX: N63.12 Unspecified lump in the right breast, upper inner quadrant (principal)
CPT/HCPCS: 76642; 77061; 77065; G0279

== ENCOUNTER 2021-05-24 10:55 | Outpatient (CLI) | payer MEDICARE ==
[~2021-05-24 10:55] MED LIST changes: -LISI2.5T PO; +LISI2.5T12 PO
== END 2021-05-24 23:59 | disposition home or self-care (01) ==
LOC: CFH 10:55
PROVIDERS: ATTEND Family Medicine
DX: N63.10 Unspecified lump in the right breast, unspecified quadrant (principal); R92.2 Inconclusive mammogram
CPT/HCPCS: 76642; 77062; 77066; G0279